=== PATIENT | male | born 1945 | race Caucasian/White ===

== ENCOUNTER 2021-07-05 10:44 | Emergency (ER) | payer OTHER ==
[~2021-07-05] VITALS: Ht 172.7 cm; Wt 68.9 kg
[2021-07-05] MEDS ORDERED: TETANUS/DIPHTHERIA TOXOID [ADULT] 0.5 ML VIAL IM ONE (11:00)
[2021-07-05] MEDS ORDERED: ACETAMINOPHEN 500 MG TABLET PO ONE (11:00)
[2021-07-05] MEDS ORDERED: LIDOCAINE HCL MPF 1% 5ML VIAL ONE (13:18)
[2021-07-05] MEDS ORDERED: OCTYL 2-CYANOACRYLATE 1 EACH TP ONE (13:52)
[2021-07-05] MEDS ORDERED: CEPH500B PO (14:06)
[2021-07-05 14:08] VITALS: BP 130/64
== END 2021-07-05 14:46 | disposition home or self-care (01) ==
LOC: EDH 10:44
DX: S61.022A Laceration with foreign body of left thumb without damage to nail, initial encounter (principal); E78.00 Pure hypercholesterolemia, unspecified; Z90.49 Acquired absence of other specified parts of digestive tract; W31.2XXA Contact with powered woodworking and forming machines, initial encounter; Y93.89 Activity, other specified; Y92.89 Other specified places as the place of occurrence of the external cause; Y99.8 Other external cause status
CPT/HCPCS: 12002; 73140; 90471; 90714; 99283; J3490

== ENCOUNTER 2021-07-12 08:59 | Emergency (ER) | payer OTHER ==
[~2021-07-12] VITALS: Ht 172.7 cm; Wt 72.6 kg
[~2021-07-12 08:59] MED LIST: CEPH500B PO
[2021-07-12 10:07] VITALS: BP 140/79
== END 2021-07-12 10:08 | disposition home or self-care (01) ==
LOC: EDH 08:59
DX: S61.012D Laceration without foreign body of left thumb without damage to nail, subsequent encounter (principal); E78.00 Pure hypercholesterolemia, unspecified; Z90.49 Acquired absence of other specified parts of digestive tract; X58.XXXD Exposure to other specified factors, subsequent encounter
CPT/HCPCS: 99281